=== PATIENT | female | born 1995 ===

== ENCOUNTER → 2021-11-09 13:03 | Observation (INO) ==
[2021-11-09 12:12] LABS: Bacteria,Urine Few per hpf (None-Few); Bilirubin,Urine Negative (Negative); Blood,Urine Negative (Negative); Clarity,Urine Turbid (Clear); Color,Urine Light-Yellow (Yellow); Glucose,Urine (UA) Normal (Normal); Ketones,Urine Negative (Negative); Leukocyte Esterase,Urine Moderate (Negative); Mucus,Urine Few per lpf (None-Few); Nitrite,Urine Negative (Negative); Protein,Urine Trace mg/dL (Neg-Trace); RBC,Urine 0-3 per hpf (0-3); Specific Gravity,Urine 1.019 (1.010-1.025); Squamous Epithelial Cell,Urine Moderate per hpf (None-Few); Urobilinogen,Urine Normal (Normal)
[2021-11-09 12:22] LABS: Basophils % 0.3 %; Eosinophils # 0.1 K/mcL (0.0-0.6); Eosinophils % 0.8 %; Hematocrit 32.5 % (35.3-44.9); Hemoglobin 10.9 g/dL (11.5-15.4); Immature Granulocytes % 1.4 % (0-4); Lymphocytes % 14.8 %; Mean Corpuscular HGB Conc 33.5 g/dL (31.6-35.5); Mean Corpuscular Hemoglobin 28.2 pg (28.0-33.3); Mean Platelet Volume 10.3 fL (9.4-12.4); Monocytes % 7.2 %; Platelet Count 315 K/mcL (140-400); Red Blood Count 3.87 M/mcL (3.82-4.97); Red Cell Distribution Width 12.7 % (11.5-14.5); Segmented Neutrophils % 75.5 %; White Blood Count 13.3 K/mcL (4.3-11.1)
[2021-11-09 12:30] LABS: Protein/Creatinine Ratio,Urine 0.23 mg/mg (0.00-0.20)
[2021-11-09 12:41] LABS: Alanine Aminotransferase 13 Units/L (7-52); Aspartate Amino Transferase 19 Units/L (13-39); BUN/Creatinine Ratio 12 (6-26); Blood Urea Nitrogen 6 mg/dL (6-20); Lactate Dehydrogenase 160 Units/L (140-271); Uric Acid 2.8 mg/dL (2.3-7.6); eGFR For African Americans > 60 (> 60); eGFR For Non-African Americans > 60 (> 60)
[~2021-11-09 13:03] MED LIST: Ringers Solution, Lactated 1,000 ML IVC ONE
== END | disposition home or self-care (01) ==
LOC: 1NENULAB
PROVIDERS: ADMIT Advanced Practice Midwife; ATTEND Advanced Practice Midwife

== ENCOUNTER 2021-11-22 07:22 | Inpatient (IN) ==
[2021-11-22] MEDS ORDERED: *HR* HYDROmorphone PF 0.5 MG/0.5 ML SYRINGE IVP PRN (07:32)
[2021-11-22] MEDS ORDERED: *HR* Labetalol 20 MG/4 ML SYRINGE IVP PRN (07:32)
[2021-11-22] MEDS ORDERED: *HR* Morphine Sulfate/PF 10 MG/10 ML AMPUL ONE (07:37)
[2021-11-22] MEDS ORDERED: EPHEDrine 50 MG/ML VIAL ONE (07:37)
[2021-11-22] MEDS ORDERED: Ketorolac 30 MG/ML VIAL ONE (07:37)
[2021-11-22] MEDS ORDERED: Ondansetron 4 MG/2 ML VIAL ONE (07:37)
[2021-11-22] MEDS ORDERED: *HR* FentaNYL (PF) 100 MCG/2 ML VIAL ONE (07:37)
[2021-11-22] MEDS ORDERED: CeFAZolin 2,000 MG/120 ML BAG IVPB ONE (07:39)
[2021-11-22] MEDS ORDERED: OXYTOCIN/RINGERS LACTATE 10 UNIT/166.6 ML BAG IVC ONE (07:39)
[2021-11-22] MEDS ORDERED: Ringers Solution, Lactated 1,000 ML IVC ONE (07:39)
[2021-11-22] MEDS ORDERED: Famotidine 20 MG/2 ML VIAL IVP ONE (07:39)
[2021-11-22] MEDS ORDERED: Metoclopramide 10 MG/2 ML VIAL IVP ONE (07:39)
[2021-11-22] MEDS ORDERED: Ringers Solution, Lactated 1,000 ML IVC SCH ×2 (07:45→14:23)
[2021-11-22] MEDS ORDERED: *HR* Labetalol 20 MG/4 ML SYRINGE IVP ONE (08:46)
[2021-11-22 09:20] LABS: Basophils # 0.1 K/mcL (0.0-0.2); Basophils % 0.7 %; Eosinophils # 0.2 K/mcL (0.0-0.6); Eosinophils % 1.8 %; Hematocrit 34.8 % (35.3-44.9); Hemoglobin 11.1 g/dL (11.5-15.4); Immature Granulocytes % 3.1 % (0-4); Lymphocytes # 2.1 K/mcL (0.6-4.6); Lymphocytes % 15.8 %; Mean Corpuscular HGB Conc 31.9 g/dL (31.6-35.5); Mean Corpuscular Hemoglobin 26.9 pg (28.0-33.3); Mean Corpuscular Volume 84.3 fL (83.0-100.0); Mean Platelet Volume 10.3 fL (9.4-12.4); Monocytes # 1.2 K/mcL (0.0-1.3); Monocytes % 9.3 %; Platelet Count 339 K/mcL (140-400); Red Blood Count 4.13 M/mcL (3.82-4.97); Red Cell Distribution Width 13.1 % (11.5-14.5); Segmented Neutrophils % 69.3 %
[2021-11-22 09:49] LABS: Influenza A PCR Negative (Negative); Influenza B PCR Negative (Negative); Resp. Syncytial Virus PCR Negative (Negative)
[2021-11-22 09:50] LABS: SARS-CoV-2 by PCR (In House) Negative (Negative)
[2021-11-22 09:51] LABS: Alanine Aminotransferase 10 Units/L (7-52); Aspartate Amino Transferase 14 Units/L (13-39); BUN/Creatinine Ratio 15 (6-26); Blood Urea Nitrogen 8 mg/dL (6-20); Lactate Dehydrogenase 167 Units/L (140-271); Uric Acid 2.7 mg/dL (2.3-7.6); eGFR For African Americans > 60 (> 60); eGFR For Non-African Americans > 60 (> 60)
[2021-11-22] MEDS ORDERED: Oxytocin 30 UNIT/503 ML BAG IVC ONE (10:06)
[2021-11-22] MEDS ORDERED: Acetaminophen IV 1,000 MG/100 ML BAG IVPB ONE (10:07)
[2021-11-22 12:25] LABS: Amphetamine Screen,Urine Negative ng/mL (Cutoff=1000); Barbiturate Screen,Urine Negative ng/mL (Cutoff=200); Benzodiazepines Screen,Urine Negative ng/mL (Cutoff=200); Cannabinoid Screen,Urine Negative ng/mL (Cutoff = 50); Cocaine Screen,Urine Negative ng/mL (Cutoff= 300); Creatinine,Urine 119 mg/dL; Opiate Screen,Urine Negative ng/mL (Cutoff=300); Phencyclidine Screen,Urine Negative ng/mL (Cutoff=25); Protein/Creatinine Ratio,Urine 0.19 mg/mg (0.00-0.20)
[2021-11-22] MEDS ORDERED: *HR* OxyCODONE Immed Rel 5 MG TABLET PO PRN (14:23)
[2021-11-22] MEDS ORDERED: Simethicone 80 MG TAB.CHEW PO PRN (14:23)
[2021-11-22] MEDS ORDERED: Metoclopramide 10 MG/2 ML VIAL IVP PRN (14:23)
[2021-11-22] MEDS ORDERED: Oxytocin 30 UNIT/503 ML BAG IVC SCH (14:23)
[2021-11-22] MEDS ORDERED: Ondansetron 4 MG/2 ML VIAL IVP PRN (14:23)
[2021-11-22] MEDS: Acetaminophen 325 MG TABLET PO SCH ×2 (16:08→21:04)
[2021-11-22] MEDS: Ibuprofen 600 MG TABLET PO SCH ×2 (16:08→21:04)
[2021-11-22 16:30] LABS: Basophils # 0.1 K/mcL (0.0-0.2); Basophils % 0.3 %; Hematocrit 30.3 % (35.3-44.9); Hemoglobin 9.7 g/dL (11.5-15.4); Immature Granulocytes % 0.8 % (0-4); Lymphocytes # 1.3 K/mcL (0.6-4.6); Lymphocytes % 5.8 %; Mean Corpuscular Volume 84.4 fL (83.0-100.0); Mean Platelet Volume 10.3 fL (9.4-12.4); Monocytes # 1.5 K/mcL (0.0-1.3); Monocytes % 6.7 %; Neutrophils # 18.8 K/mcL (1.6-8.9); Platelet Count 298 K/mcL (140-400); Red Blood Count 3.59 M/mcL (3.82-4.97); Segmented Neutrophils % 86.4 %
[2021-11-22 16:31] LABS: White Blood Count 21.8 K/mcL (4.3-11.1)
[2021-11-23] MEDS: Acetaminophen 325 MG TABLET PO SCH ×3 (05:11→17:46)
[2021-11-23] MEDS: Ibuprofen 600 MG TABLET PO SCH ×3 (05:11→17:46)
[2021-11-23 07:13] LABS: Basophils # 0.1 K/mcL (0.0-0.2); Basophils % 0.3 %; Eosinophils # 0.2 K/mcL (0.0-0.6); Eosinophils % 0.9 %; Hematocrit 27.2 % (35.3-44.9); Hemoglobin 8.7 g/dL (11.5-15.4); Lymphocytes # 2.7 K/mcL (0.6-4.6); Lymphocytes % 13.3 %; Mean Corpuscular Hemoglobin 26.8 pg (28.0-33.3); Mean Corpuscular Volume 83.7 fL (83.0-100.0); Mean Platelet Volume 10.9 fL (9.4-12.4); Monocytes # 1.9 K/mcL (0.0-1.3); Monocytes % 9.4 %; Neutrophils # 15.1 K/mcL (1.6-8.9); Platelet Count 286 K/mcL (140-400); Red Blood Count 3.25 M/mcL (3.82-4.97); Red Cell Distribution Width 13.2 % (11.5-14.5); Segmented Neutrophils % 75.1 %; White Blood Count 20.1 K/mcL (4.3-11.1)
[2021-11-23] MEDS: Prenatal Vit/FA 1 EACH TABLET PO SCH (09:36)
[2021-11-24] MEDS: Acetaminophen 325 MG TABLET PO SCH ×4 (00:06→15:20)
[2021-11-24] MEDS: Ibuprofen 600 MG TABLET PO SCH ×4 (00:07→15:19)
[2021-11-24] MEDS: Prenatal Vit/FA 1 EACH TABLET PO SCH (08:31)
[2021-11-24 14:55] VITALS: BP 133/87; PULSE 78; TEMP 98.1; O2SAT 98
== END 2021-11-24 15:51 | disposition home or self-care (01) | DRG 540 ==
LOC: 1NENULAB 07:22 → 1NENUOBS 14:23
PROVIDERS: ADMIT Obstetrics & Gynecology; ATTEND Obstetrics & Gynecology